=== PATIENT | female | born 1945 | race Caucasian/White ===

== ENCOUNTER 2016-04-01 | Inpatient (IN) | payer MEDICARE, MEDICAID ==
[2016-03-24 17:55] LABS: BASO % 0.3 % (0-2); EOS % 1.4 % (0-7); EOSINOPHIL ABSOLUTE COUNT 0.1 tho/cmm (0.0-0.7); HCT-HEMATOCRIT 33.9 % (34.0-49.0); HGB-HEMOGLOBIN 11.2 gm/dl (12.0-15.5); IMMATURE GRANULOCYTES ABSOLUTE 0.06 tho/cmm (0-0.03); IMMATURE GRANULOCYTES PERCENT 0.8 % (0-0.3); LYMPH % 15.9 % (20-45); LYMPH ABSOLUTE COUNT 1.1 tho/cmm (0.8-4.5); MCH (MEAN CORPUSCULAR HGB) 28.9 pg (28.0-32.0); MCV (MEAN CELL VOLUME) 87.4 fl (82.0-96.0); MEAN PLATELET VOLUME 10.2 cmc (9.4-12.4); MONO % 6.2 % (0-12); MONOCYTE ABSOLUTE COUNT 0.4 tho/cmm (0.0-1.2); NEUTROPHIL ABSOLUTE COUNT 5.3 tho/cmm (1.6-8.0); NEUTROPHIL-AUTOMATED 5.3 tho/cmm (1.6-8.0); NEUTROPHILS % 75.4 % (40-80); PLATELET COUNT 253 tho/cmm (150-450); RED BLOOD COUNT 3.88 mil/cmm (4.00-5.20); RED CELL DISTRIBUTION WIDTH 13.3 % (12.4-16.4); WHITE BLOOD COUNT 7.1 tho/cmm (4.0-10.0)
[2016-03-24 18:02] LABS: CHLORIDE 92 mmol/l (96-110); POTASSIUM 4.2 mmol/L (3.7-5.1); SODIUM 128 mmol/L (135-145)
[2016-03-24 18:04] LABS: ANION GAP 13 mmol/L (0-20); BLOOD UREA NITROGEN 20 mg/dl (6-24); CARBON DIOXIDE-VENOUS 27 mmol/L (22-32); GLUCOSE 123 mg/dL (70-110)
[2016-03-24 18:08] LABS: CREATININE 0.58 mg/dl (0.50-1.10); VALPROIC ACID (DEPAKOTE) 43 ug/ml (50-100); eGFR VALUE FOR BLACK >60 mL/Min
[2016-03-24 18:47] LABS: URINE BILIRUBIN NEGATIVE (NEG); URINE BLOOD NEGATIVE (NEG); URINE GLUCOSE (UA) NEGATIVE (NEG); URINE KETONE NEGATIVE (NEG); URINE LEUKOCYTE ESTERASE POSITIVE (NEG); URINE NITRITE NEGATIVE (NEG); URINE PROTEIN NEGATIVE (NEG)
[2016-03-24 18:48] LABS: URINE APPEARANCE CLEAR; URINE COLOR YELLOW; URINE SPECIFIC GRAVITY 1.009 (1.003-1.030)
[2016-03-24 18:53] LABS: URINE EPITHELIAL CELLS 0-1 /[HPF] (0-10); URINE RBC 0 /[HPF] (0-5)
[2016-03-25 05:12] LABS: BASO % 0.4 % (0-2); EOS % 2.2 % (0-7); EOSINOPHIL ABSOLUTE COUNT 0.2 tho/cmm (0.0-0.7); HCT-HEMATOCRIT 32.4 % (34.0-49.0); HGB-HEMOGLOBIN 10.6 gm/dl (12.0-15.5); IMMATURE GRANULOCYTES ABSOLUTE 0.07 tho/cmm (0-0.03); LYMPH % 18.8 % (20-45); LYMPH ABSOLUTE COUNT 1.3 tho/cmm (0.8-4.5); MCH (MEAN CORPUSCULAR HGB) 28.6 pg (28.0-32.0); MCHC MEAN CORPUSCULAR HGB CONC 32.7 % (32.0-36.0); MCV (MEAN CELL VOLUME) 87.6 fl (82.0-96.0); MEAN PLATELET VOLUME 10.8 cmc (9.4-12.4); MONO % 6.4 % (0-12); MONOCYTE ABSOLUTE COUNT 0.4 tho/cmm (0.0-1.2); NEUTROPHIL ABSOLUTE COUNT 4.8 tho/cmm (1.6-8.0); NEUTROPHIL-AUTOMATED 4.8 tho/cmm (1.6-8.0); NEUTROPHILS % 71.2 % (40-80); PLATELET COUNT 243 tho/cmm (150-450); RED CELL DISTRIBUTION WIDTH 13.5 % (12.4-16.4); WHITE BLOOD COUNT 6.8 tho/cmm (4.0-10.0)
[2016-03-25 05:30] LABS: OSMOLALITY 263 mOsm/kg (275-295)
[2016-03-25 05:46] LABS: ANION GAP 13 mmol/L (0-20); BLOOD UREA NITROGEN 21 mg/dl (6-24); CALCIUM 7.9 mg/dl (8.5-10.5); CARBON DIOXIDE-VENOUS 28 mmol/L (22-32); CHLORIDE 94 mmol/l (96-110); GLUCOSE 157 mg/dL (70-110); SODIUM 131 mmol/L (135-145)
[2016-03-25 05:48] LABS: CREATININE 0.68 mg/dl (0.50-1.10); eGFR VALUE FOR BLACK >60 mL/Min
[2016-03-25 06:46] LABS: URINE CREATININE-RANDOM 29 mg/dl (30-125); URINE SODIUM-RANDOM 39 mmol/L (20-110)
[2016-03-25 06:47] LABS: URINE POTASSIUM RANDOM 14 mmol/L (12-62)
[2016-03-26 05:53] LABS: BASO % 0.2 % (0-2); EOSINOPHIL ABSOLUTE COUNT 0.1 tho/cmm (0.0-0.7); HCT-HEMATOCRIT 28.5 % (34.0-49.0); HGB-HEMOGLOBIN 9.4 gm/dl (12.0-15.5); IMMATURE GRANULOCYTES ABSOLUTE 0.06 tho/cmm (0-0.03); IMMATURE GRANULOCYTES PERCENT 1.1 % (0-0.3); LYMPH % 26.6 % (20-45); LYMPH ABSOLUTE COUNT 1.5 tho/cmm (0.8-4.5); MCH (MEAN CORPUSCULAR HGB) 28.8 pg (28.0-32.0); MCV (MEAN CELL VOLUME) 87.4 fl (82.0-96.0); MEAN PLATELET VOLUME 10.5 cmc (9.4-12.4); MONO % 12.6 % (0-12); MONOCYTE ABSOLUTE COUNT 0.7 tho/cmm (0.0-1.2); NEUTROPHIL ABSOLUTE COUNT 3.2 tho/cmm (1.6-8.0); NEUTROPHIL-AUTOMATED 3.2 tho/cmm (1.6-8.0); NEUTROPHILS % 57.5 % (40-80); PLATELET COUNT 224 tho/cmm (150-450); RED BLOOD COUNT 3.26 mil/cmm (4.00-5.20); RED CELL DISTRIBUTION WIDTH 13.5 % (12.4-16.4); WHITE BLOOD COUNT 5.5 tho/cmm (4.0-10.0)
[2016-03-26 06:04] LABS: ANION GAP 12 mmol/L (0-20); BLOOD UREA NITROGEN 22 mg/dl (6-24); CALCIUM 7.6 mg/dl (8.5-10.5); CARBON DIOXIDE-VENOUS 30 mmol/L (22-32); CHLORIDE 96 mmol/l (96-110); CREATININE 0.71 mg/dl (0.50-1.10); GLUCOSE 106 mg/dL (70-110); POTASSIUM 3.9 mmol/L (3.7-5.1); SODIUM 134 mmol/L (135-145); eGFR VALUE FOR BLACK >60 mL/Min
[2016-03-27 07:10] LABS: HCT-HEMATOCRIT 28.7 % (34.0-49.0); HGB-HEMOGLOBIN 9.4 gm/dl (12.0-15.5); MCV (MEAN CELL VOLUME) 88.3 fl (82.0-96.0); RED CELL DISTRIBUTION WIDTH 13.8 % (12.4-16.4)
[2016-03-30 06:14] LABS: BASO % 0.3 % (0-2); EOS % 1.4 % (0-7); EOSINOPHIL ABSOLUTE COUNT 0.1 tho/cmm (0.0-0.7); HGB-HEMOGLOBIN 9.3 gm/dl (12.0-15.5); IMMATURE GRANULOCYTES ABSOLUTE 0.06 tho/cmm (0-0.03); IMMATURE GRANULOCYTES PERCENT 0.8 % (0-0.3); LYMPH % 17.2 % (20-45); LYMPH ABSOLUTE COUNT 1.4 tho/cmm (0.8-4.5); MCH (MEAN CORPUSCULAR HGB) 28.8 pg (28.0-32.0); MCHC MEAN CORPUSCULAR HGB CONC 32.1 % (32.0-36.0); MCV (MEAN CELL VOLUME) 89.8 fl (82.0-96.0); MEAN PLATELET VOLUME 10.7 cmc (9.4-12.4); MONO % 9.6 % (0-12); MONOCYTE ABSOLUTE COUNT 0.8 tho/cmm (0.0-1.2); NEUTROPHIL ABSOLUTE COUNT 5.6 tho/cmm (1.6-8.0); NEUTROPHIL-AUTOMATED 5.6 tho/cmm (1.6-8.0); NEUTROPHILS % 70.7 % (40-80); PLATELET COUNT 271 tho/cmm (150-450); RED BLOOD COUNT 3.23 mil/cmm (4.00-5.20); RED CELL DISTRIBUTION WIDTH 13.9 % (12.4-16.4)
[2016-03-30 06:18] LABS: ANION GAP 13 mmol/L (0-20); BLOOD UREA NITROGEN 26 mg/dl (6-24); CALCIUM 7.9 mg/dl (8.5-10.5); CARBON DIOXIDE-VENOUS 25 mmol/L (22-32); CHLORIDE 103 mmol/l (96-110); CREATININE 0.59 mg/dl (0.50-1.10); GLUCOSE 104 mg/dL (70-110); POTASSIUM 4.4 mmol/L (3.7-5.1); SODIUM 137 mmol/L (135-145); eGFR VALUE FOR BLACK >60 mL/Min
[2016-03-30 22:13] LABS: ALB/GLOB RATIO 0.5 (0.8-2.0); ALBUMIN 1.9 g/dl (3.5-5.0); ALKALINE PHOSPHATASE 66 U/L (33-138); ALT/SGPT 10 U/L (12-78); ANION GAP 12 mmol/L (0-20); AST/SGOT 10 U/L (10-40); BILIRUBIN,TOTAL 0.3 mg/dl (0-1.5); BLOOD UREA NITROGEN 22 mg/dl (6-24); CALCIUM 7.8 mg/dl (8.5-10.5); CARBON DIOXIDE-VENOUS 26 mmol/L (22-32); CHLORIDE 105 mmol/l (96-110); CREATINE PHOSPHOKINASE (CPK) 26 U/L (21-215); CREATININE 0.61 mg/dl (0.50-1.10); MAGNESIUM 1.4 mg/dl (1.3-2.6); PHOSPHOROUS 2.7 mg/dl (2.5-4.9); POTASSIUM 4.4 mmol/L (3.7-5.1); SODIUM 139 mmol/L (135-145); eGFR VALUE FOR BLACK >60 mL/Min
[2016-03-30 22:36] LABS: GLUCOSE 192 mg/dL (70-110)
[~2016-04-01] MED LIST: ACETAMINOPHEN325 M2 PO; ANTIFUNGAL30 G3 TOP; ARTIFICIAL TEAR1512 OP; ASPIRIN81 M1 PO; BENZTROPINE MESY1 M1 PO; CALMOSEPTINE O3.5 G1 TOP; CLONAZEPAM1 M2; CLONAZEPAM1 M2 PO; COLACE100 M1 PO; DEPAKOTE ER500 M1 PO; DIVALPROEX SOD250 M3 PO; DIVALPROEX SOD500 M4 PO; EUCERIN CREME120 G1 TP; GLYCOLAX119 G1 PO; HALDOL DEC50 MG/1 ML IM; HALDOL5 MG/1 ML IM; LIDODERM1 EACH TP; LISINOPRIL10 M1 PO; MAPAP ARTHRITI650 M1 PO; MAPAP325 M2 PO; METFORMIN HCL1000 M2 PO; MIRALAX17 G2 PO; NEXIUM40 M1 PO; NYSTATIN15 G1; NYSTATIN15 G1 TP; PEPCID20 M1 PO; PEPCID40 M1 PO; POLYETHYLENE GL17 G1 PO; PROTONIX40 M2 PO; QUETIAPINE FUM100 M1 PO; SENNA PLUS TAB1 EAC1 PO; SENNA S TABLET1 EACH PO; SEROQUEL X300 MG/TAB PO; SEROQUEL100 M2 PO; SERTRALINE HCL100 M5 PO; TRADJENTA5 M1 PO; TRAZODONE HCL50 M1 PO; TRIPLE ANTIBIO1 EACH; ULTRAM50 M1 PO; ZESTRIL10 M3 PO
[2016-04-02 06:40] LABS: BASO % 0.2 % (0-2); EOS % 3.8 % (0-7); EOSINOPHIL ABSOLUTE COUNT 0.2 tho/cmm (0.0-0.7); HCT-HEMATOCRIT 25.4 % (34.0-49.0); HGB-HEMOGLOBIN 8.2 gm/dl (12.0-15.5); IMMATURE GRANULOCYTES ABSOLUTE 0.04 tho/cmm (0-0.03); IMMATURE GRANULOCYTES PERCENT 0.7 % (0-0.3); LYMPH % 23.3 % (20-45); LYMPH ABSOLUTE COUNT 1.3 tho/cmm (0.8-4.5); MCH (MEAN CORPUSCULAR HGB) 28.6 pg (28.0-32.0); MCHC MEAN CORPUSCULAR HGB CONC 32.3 % (32.0-36.0); MCV (MEAN CELL VOLUME) 88.5 fl (82.0-96.0); MEAN PLATELET VOLUME 9.4 cmc (9.4-12.4); MONO % 9.3 % (0-12); MONOCYTE ABSOLUTE COUNT 0.5 tho/cmm (0.0-1.2); NEUTROPHIL ABSOLUTE COUNT 3.6 tho/cmm (1.6-8.0); NEUTROPHIL-AUTOMATED 3.6 tho/cmm (1.6-8.0); NEUTROPHILS % 62.7 % (40-80); PLATELET COUNT 323 tho/cmm (150-450); RED BLOOD COUNT 2.87 mil/cmm (4.00-5.20); RED CELL DISTRIBUTION WIDTH 13.5 % (12.4-16.4); WHITE BLOOD COUNT 5.7 tho/cmm (4.0-10.0)
[2016-04-02 06:53] LABS: ANION GAP 12 mmol/L (0-20); BLOOD UREA NITROGEN 20 mg/dl (6-24); CALCIUM 8.2 mg/dl (8.5-10.5); CARBON DIOXIDE-VENOUS 29 mmol/L (22-32); CHLORIDE 103 mmol/l (96-110); CREATININE 0.52 mg/dl (0.50-1.10); GLUCOSE 89 mg/dL (70-110); POTASSIUM 4.2 mmol/L (3.7-5.1); SODIUM 140 mmol/L (135-145); eGFR VALUE FOR BLACK >60 mL/Min
[2016-04-02 12:06] LABS: IRON 33 ug/dl (37-170); IRON BINDING CAPACITY 209 ug/dl (250-450)
[2016-04-02 19:08] LABS: URINE BILIRUBIN NEGATIVE (NEG); URINE BLOOD MODERATE (NEG); URINE GLUCOSE (UA) NEGATIVE (NEG); URINE KETONE NEGATIVE (NEG); URINE LEUKOCYTE ESTERASE POSITIVE (NEG); URINE NITRITE NEGATIVE (NEG); URINE PH 6.5 (5.0-8.0); URINE PROTEIN NEGATIVE (NEG)
[2016-04-02 19:13] LABS: URINE APPEARANCE CLEAR; URINE COLOR YELLOW; URINE SPECIFIC GRAVITY 1.011 (1.003-1.030)
[2016-04-02 19:17] LABS: URINE BACTERIA 1+; URINE EPITHELIAL CELLS 0-1 /[HPF] (0-10)
[2016-04-03 07:33] LABS: ANION GAP 17 mmol/L (0-20); BLOOD UREA NITROGEN 16 mg/dl (6-24); CARBON DIOXIDE-VENOUS 26 mmol/L (22-32); CHLORIDE 104 mmol/l (96-110); CREATININE 0.53 mg/dl (0.50-1.10); GLUCOSE 119 mg/dL (70-110); POTASSIUM 4.5 mmol/L (3.7-5.1); SODIUM 142 mmol/L (135-145); eGFR VALUE FOR BLACK >60 mL/Min
[2016-04-13] MEDS ORDERED: QUETIAPINE FUM150 MG PO (09:22)
[2016-04-13] MEDS ORDERED: COLACE100 M1 PO (09:26)
[2016-04-13] MEDS ORDERED: IRON325 M3 PO (09:27)
== END 2016-04-07 14:44 | DRG 603 ==
PROVIDERS: Emergency Medicine; Family Medicine; Internal Medicine; Psychiatry & Neurology Neurology; ADMIT Hospitalist
PROC: 05HC33Z Insertion of Infusion Device into Left Basilic Vein, Percutaneous Approach (ICD-10-PCS; principal; 2016-04-01)
DX: L03.115 Cellulitis of right lower limb (principal); K52.1 Toxic gastroenteritis and colitis; G25.70 Drug induced movement disorder, unspecified; F20.0 Paranoid schizophrenia; I10 Essential (primary) hypertension; E11.9 Type 2 diabetes mellitus without complications; D63.8 Anemia in other chronic diseases classified elsewhere; F81.9 Developmental disorder of scholastic skills, unspecified; M62.81 Muscle weakness (generalized); Z79.82 Long term (current) use of aspirin; T43.4X5A Adverse effect of butyrophenone and thiothixene neuroleptics, initial encounter; T43.595A Adverse effect of other antipsychotics and neuroleptics, initial encounter; T36.95XA Adverse effect of unspecified systemic antibiotic, initial encounter; R29.6 Repeated falls; Z91.81 History of falling; S80.221A Blister (nonthermal), right knee, initial encounter; W18.30XA Fall on same level, unspecified, initial encounter; R26.89 Other abnormalities of gait and mobility; Z85.3 Personal history of malignant neoplasm of breast; Z79.84 Long term (current) use of oral hypoglycemic drugs
CPT/HCPCS: A9577; C1751; G0378; G8978-GO-CJ; G8978-GP-CJ; G8979-GO-CI; G8979-GP-CI; G8980-GO-CJ; J1815; J2543; J3370; J7030